=== PATIENT | female | born 1980 | race Caucasian/White ===

== ENCOUNTER 2018-11-06 15:12 | Emergency (ER) | payer MEDICAID ==
[~2018-11-06] VITALS: Ht 154.9 cm; Wt 47.0 kg
[2018-11-06 15:22] VITALS: Ht 154.9 cm; Wt 47.0 kg
[2018-11-06] MEDS ORDERED: IBUPROFEN 600 MG TAB PO ONE (16:30)
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
[2018-11-06] MEDS ORDERED: NITR-58 PO (20:41)
[2018-11-06 20:52] VITALS: BP 136/82; PULSE 80; RESP 16
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
== END 2018-11-06 20:52 | disposition home or self-care (01) ==
LOC: FTE 15:12
DX: S09.90XA Unspecified injury of head, initial encounter (principal); Y04.2XXA Assault by strike against or bumped into by another person, initial encounter
CPT/HCPCS: 81003; 81025; Z7502; Z7610; 99283